=== PATIENT | male | born 1995 | race Caucasian/White ===

== ENCOUNTER → 2021-03-04 | Outpatient (CLI) | payer BC | LOC: M.RAD 13:16 | PROVIDERS: ATTEND Registered Nurse Diabetes Educator | DX: S63.501D Unspecified sprain of right wrist, subsequent encounter (principal); M25.831 Other specified joint disorders, right wrist; M95.8 Other specified acquired deformities of musculoskeletal system; V29.9XXD Motorcycle rider (driver) (passenger) injured in unspecified traffic accident, subsequent encounter ==